=== PATIENT | female | born 1935 | race Caucasian/White ===

== ENCOUNTER 2020-08-03 10:36 | Outpatient (CLI) | payer MEDICARE, SELFPAY | END 2020-08-03 10:37 | disposition home or self-care (01) | LOC: ANHCOVIDVC 10:36 | PROVIDERS: PCP Internal Medicine | DX: Z23 Encounter for immunization (principal) | CPT/HCPCS: 0001A; 91300 ==

== ENCOUNTER 2020-08-24 10:36 | Outpatient (CLI) | payer MEDICARE, SELFPAY | END 2020-08-24 10:37 | disposition home or self-care (01) | LOC: ANHCOVIDVC 10:36 | PROVIDERS: PCP Internal Medicine | DX: Z23 Encounter for immunization (principal) | CPT/HCPCS: 0002A; 91300 ==